=== PATIENT | male | born 1995 | race African-American/Black ===

== ENCOUNTER 2016-12-12 09:07 | Emergency (ER) | payer SELFPAY ==
[~2016-12-12] VITALS: Ht 195.6 cm; Wt 85.0 kg
[2016-12-12] MEDS ORDERED: AUGMENTIN500TAB PO (10:58)
[2016-12-12 11:19] VITALS: BP 122/70
== END 2016-12-12 11:19 | disposition home or self-care (01) | DRG 914 ==
LOC: ED 09:07
DX: S69.91XA Unspecified injury of right wrist, hand and finger(s), initial encounter (principal); R22.31 Localized swelling, mass and lump, right upper limb; S60.511A Abrasion of right hand, initial encounter; Y04.0XXA Assault by unarmed brawl or fight, initial encounter; Y92.009 Unspecified place in unspecified non-institutional (private) residence as the place of occurrence of the external cause

== ENCOUNTER 2017-10-04 11:25 | Emergency (ER) | payer SELFPAY ==
[~2017-10-04] VITALS: Ht 195.6 cm; Wt 100.0 kg
[~2017-10-04 11:25] MED LIST: AUGMENTIN500TAB PO
[2017-10-04] MEDS ORDERED: VOLTAREN75 MG PO (12:38)
[2017-10-04 12:55] VITALS: BP 135/77
== END 2017-10-04 12:59 | disposition home or self-care (01) | DRG 605 ==
LOC: ED 11:25
DX: S40.011A Contusion of right shoulder, initial encounter (principal); M25.511 Pain in right shoulder; W03.XXXA Other fall on same level due to collision with another person, initial encounter; Y93.66 Activity, soccer; Y92.007 Garden or yard of unspecified non-institutional (private) residence as the place of occurrence of the external cause

== ENCOUNTER 2017-11-03 18:00 | Emergency (ER) | payer SELFPAY ==
[~2017-11-03] VITALS: Ht 195.6 cm; Wt 84.4 kg
[~2017-11-03 18:00] MED LIST changes: +VOLTAREN75 MG PO
[2017-11-03 18:02] VITALS: BP 133/90
== END 2017-11-03 18:10 | disposition left against medical advice (07) | DRG 951 ==
LOC: ED 18:00 → LWOBS 18:10
DX: Z91.19 Patient's noncompliance with other medical treatment and regimen (principal)

== ENCOUNTER 2020-02-28 18:20 | Emergency (ER) | payer BC ==
[~2020-02-28] VITALS: Ht 195.6 cm; Wt 97.0 kg
[2020-02-28] MEDS ORDERED: PROTONIX40 MG PO ×2 (21:55→21:57)
[2020-02-28 22:22] VITALS: BP 114/70
== END 2020-02-28 22:23 | disposition home or self-care (01) | DRG 392 ==
LOC: ED 18:20
DX: K21.9 Gastro-esophageal reflux disease without esophagitis (principal); F17.200 Nicotine dependence, unspecified, uncomplicated

== ENCOUNTER 2020-05-07 17:59 | Emergency (ER) | payer BC ==
[~2020-05-07] VITALS: Ht 195.6 cm; Wt 88.0 kg
[~2020-05-07 17:59] MED LIST changes: +PROTONIX40 MG PO
[2020-05-07 18:46] LABS: HEMATOCRIT 44.7 % (39.0-50.0); HEMOGLOBIN 14.2 g/dl (14.0-18.0); IMMATURE GRANULOCYTES 0.3 % (0.0-5.0); MEAN CELL VOLUME 102.3 fL CALC (80.0-100.0); MEAN CORPUSCULAR HGB 32.5 pG CALC (26.0-32.0); MEAN CORPUSCULAR HGB CONC 31.8 g/dL CAL (32.0-36.0); NEUT# 2.5 thou/uL (1.82-7.42); RED BLOOD COUNT 4.37 mill/uL (4.70-6.10)
[2020-05-07 18:59] LABS: ALKALINE PHOSPHATASE 46 u/l (38-126); ANION GAP 12 (6-22 (CALC)); BILIRUBIN, TOTAL 0.6 mg/dL (0.0-1.4); BUN 13 mg/dL (9-20); BUN/CREATININE RATIO 11 (12-20 (CALC)); CARBON DIOXIDE 29 mmol/l (22-30); CHLORIDE 102 mmol/l (95-108); CREATININE 1.2 mg/dL (0.7-1.3); GFR > 60 ML/MIN (>=60 (CALC)); GFR FOR AFR.AMER. > 60 ML/MIN (>=60 (CALC)); POTASSIUM 4.1 mmol/l (3.5-5.1); SGOT/AST 26 u/l (17-59); SODIUM 139 mmol/l (137-146); TOTAL PROTEIN 9.4 g/dL (6.3-8.2)
[2020-05-07] MEDS ORDERED: ATIVAN0.5 MG PO (19:40)
[2020-05-07 20:15] VITALS: BP 131/78
== END 2020-05-07 20:15 | disposition home or self-care (01) | DRG 880 ==
LOC: ED 17:59
DX: F41.9 Anxiety disorder, unspecified (principal); K21.9 Gastro-esophageal reflux disease without esophagitis; F17.200 Nicotine dependence, unspecified, uncomplicated